=== PATIENT | female | born 1990 | race Caucasian/White ===

== ENCOUNTER → 2021-02-21 12:14 | Outpatient (CLI) | payer OTHER, SELFPAY ==
[2021-02-21 20:00] LABS: Alanine Aminotransferase 23 IU/L (<35); Albumin 4.4 g/dL (3.5-5.0); Albumin Globulin Ratio 1.5 (1.0-2.8); Alkaline Phosphatase 66 U/L (38-126); Aspartate Aminotransferase 26 IU/L (14-36); BUN Creatinine Ratio 14.8 (6-22); Bilirubin Total 0.2 mg/dL (0.2-1.3); Blood Urea Nitrogen 8 mg/dL (7-17); Calcium 9.6 mg/dL (8.4-10.2); Carbon Dioxide 26 mmol/L (22-32); Chloride 103 mmol/L (98-107); Estimated Glomerular Filt Rate > 60.0 mL/min (>60); Globulin 2.9 g/dL (1.7-4.1); Glucose 83 mg/dL (70-100); HEMOLYSIS < 15 (0-50); Potassium 4.1 mmol/L (3.4-5.1); Sodium 140 mmol/L (137-145); Total Protein 7.3 g/dL (6.3-8.2)
[2021-02-21 20:18] LABS: Add Manual Diff / Slide Review NO; Basophils Absolute Auto 0 /uL (0-100); Basophils Percent Auto 0.9 % (0-2); Eosinophils Absolute Auto 100 /uL (0-450); Eosinophils Percent Auto 2.1 % (2-4); Free T3, Triiodothyronine Free 3.42 pg/mL (2.77-5.27); Free T4, Direct Thyroxine 1.06 ng/dL (0.78-2.19); Hematocrit 38.3 % (36-46); Hemoglobin 13.1 g/dL (12.0-16.0); Lymphocytes Absolute Auto 1300 /uL (1100-4500); Lymphocytes Percent Auto 27.9 % (25-40); Mean Corpuscular HGB Conc 34.2 % (30-36); Mean Corpuscular Hemoglobin 32.4 PG (26-34); Mean Corpuscular Volume 94.7 fL (80-100); Monocytes Absolute Auto 200 /uL (0-900); Monocytes Percent Auto 4.9 % (3-14); Neutrophils Absolute Auto 2900 /uL (1500-7000); Neutrophils Percent Auto 64.2 % (50-75); Platelet Count 260 X10^3/uL (150-400); Red Blood Cell Count 4.05 X10^6/uL (4.0-5.2); Red Cell Distribution Width 12.7 % (11.6-14.8); White Blood Cell Count 4.6 X10^3/uL (4.5-11.0)
[2021-02-21 20:21] LABS: Progesterone, Total 2.01 ng/mL
[2021-02-21 20:31] LABS: Thyroid Stimulating Hormone 0.099 uIU/mL (0.47-4.68)
[2021-02-21 20:36] LABS: Estradiol, Total 78.9 pg/mL
[2021-02-26 14:45] LABS: Percent Free Testosterone 1.93 % (0.50-2.80); Testosterone Free 0.63 ng/dL (0.10-0.85); Testosterone Total 32.4 ng/dL (10.0-55.0)
== END ==
PROVIDERS: Family Provider Family Medicine; PCP Family Medicine
DX: E06.3 Autoimmune thyroiditis (principal)
CPT/HCPCS: 80053; 82627; 82670; 84144; 84402; 84403; 84439; 84443; 84481; 85025

== ENCOUNTER → 2021-06-27 08:34 | Outpatient (CLI) | payer OTHER, SELFPAY ==
[2021-06-27 21:28] LABS: COVID19 - ORCAS (NP or Nasal) Negative (Negative)
== END ==
PROVIDERS: Family Provider Family Medicine; PCP Family Medicine; Visit Provider Family Medicine
DX: Z20.822 Contact with and (suspected) exposure to COVID-19 (principal)
CPT/HCPCS: U0003

== ENCOUNTER → 2021-09-26 11:36 | Outpatient (CLI) | payer OTHER, SELFPAY ==
[2021-09-26 19:15] LABS: Add Manual Diff / Slide Review NO; Basophils Absolute Auto 0 /uL (0-100); Basophils Percent Auto 0.6 % (0-2); Eosinophils Absolute Auto 0 /uL (0-450); Eosinophils Percent Auto 0.8 % (2-4); Hematocrit 34.7 % (36-46); Lymphocytes Absolute Auto 1400 /uL (1100-4500); Lymphocytes Percent Auto 34.1 % (25-40); Mean Corpuscular HGB Conc 34.7 % (30-36); Mean Corpuscular Hemoglobin 33.2 PG (26-34); Mean Corpuscular Volume 95.6 fL (80-100); Monocytes Absolute Auto 200 /uL (0-900); Monocytes Percent Auto 5.1 % (3-14); Neutrophils Absolute Auto 2500 /uL (1500-7000); Neutrophils Percent Auto 59.4 % (50-75); Platelet Count 255 X10^3/uL (150-400); Red Blood Cell Count 3.62 X10^6/uL (4.0-5.2); Red Cell Distribution Width 12.9 % (11.6-14.8); White Blood Cell Count 4.2 X10^3/uL (4.5-11.0)
[2021-09-26 19:21] LABS: Alanine Aminotransferase 15 IU/L (<35); Albumin 4.6 g/dL (3.5-5.0); Albumin Globulin Ratio 1.6 (1.0-2.8); Alkaline Phosphatase 51 U/L (38-126); Aspartate Aminotransferase 27 IU/L (14-36); BUN Creatinine Ratio 16.9 (6-22); Bilirubin Total 0.6 mg/dL (0.2-1.3); Blood Urea Nitrogen 14 mg/dL (7-17); Calcium 9.8 mg/dL (8.4-10.2); Carbon Dioxide 27 mmol/L (22-32); Chloride 104 mmol/L (98-107); Estimated Glomerular Filt Rate > 60.0 mL/min (>60); Globulin 2.9 g/dL (1.7-4.1); Glucose 99 mg/dL (70-100); HEMOLYSIS < 15 (0-50); Sodium 138 mmol/L (137-145); Total Protein 7.5 g/dL (6.3-8.2)
[2021-09-26 20:04] LABS: Progesterone, Total 9.38 ng/mL
[2021-09-26 20:16] LABS: Free T3, Triiodothyronine Free 2.51 pg/mL (2.77-5.27); Free T4, Direct Thyroxine 0.28 ng/dL (0.78-2.19)
[2021-09-26 20:20] LABS: Estradiol, Total 55.5 pg/mL
[2021-09-26 20:29] LABS: Thyroid Stimulating Hormone 76.6 uIU/mL (0.47-4.68)
[2021-10-05 09:36] LABS: Percent Free Testosterone 2.23 % (0.50-2.80); Testosterone Free 0.48 ng/dL (0.10-0.85); Testosterone Total 21.5 ng/dL (10.0-55.0)
== END ==
PROVIDERS: Family Provider Family Medicine; PCP Family Medicine
DX: E06.3 Autoimmune thyroiditis (principal); N92.0 Excessive and frequent menstruation with regular cycle; N94.3 Premenstrual tension syndrome; Z13.29 Encounter for screening for other suspected endocrine disorder
CPT/HCPCS: 80053; 82627; 82670; 84144; 84402; 84403; 84439; 84443; 84481; 85025

== ENCOUNTER → 2021-11-18 12:33 | Outpatient (CLI) | payer MEDICAID, SELFPAY ==
[2021-11-18 18:55] LABS: Add Manual Diff / Slide Review NO; Basophils Absolute Auto 100 /uL (0-100); Basophils Percent Auto 1.1 % (0-2); Eosinophils Absolute Auto 100 /uL (0-450); Eosinophils Percent Auto 1.2 % (2-4); Hematocrit 35.2 % (36-46); Lymphocytes Absolute Auto 1400 /uL (1100-4500); Lymphocytes Percent Auto 31.2 % (25-40); Mean Corpuscular HGB Conc 34.1 % (30-36); Mean Corpuscular Hemoglobin 32.6 PG (26-34); Mean Corpuscular Volume 95.9 fL (80-100); Monocytes Absolute Auto 200 /uL (0-900); Monocytes Percent Auto 5.5 % (3-14); Neutrophils Absolute Auto 2800 /uL (1500-7000); Platelet Count 243 X10^3/uL (150-400); Red Blood Cell Count 3.68 X10^6/uL (4.0-5.2); Red Cell Distribution Width 12.8 % (11.6-14.8); White Blood Cell Count 4.5 X10^3/uL (4.5-11.0)
[2021-11-18 19:10] LABS: HEMOLYSIS < 15 (0-50); Iron 127 ug/dL (37-170)
[2021-11-18 19:24] LABS: Percent Iron Saturation 40 % (15-50); Total Iron Binding Capacity 317 ug/dL (265-497); Transferrin 242 mg/dL (206-381)
[2021-11-18 19:29] LABS: Free T4, Direct Thyroxine 0.66 ng/dL (0.78-2.19)
[2021-11-18 19:42] LABS: Thyroid Stimulating Hormone 15.4 uIU/mL (0.47-4.68)
[2021-11-18 19:45] LABS: Ferritin 22 ng/mL (6-137)
== END ==
PROVIDERS: Family Provider Family Medicine; PCP Family Medicine; Visit Provider General Practice
DX: D50.9 Iron deficiency anemia, unspecified (principal); E06.3 Autoimmune thyroiditis
CPT/HCPCS: 82728; 83540; 83550; 84439; 84443; 84481; 85025

== ENCOUNTER → 2022-05-30 13:24 | Outpatient (CLI) | payer OTHER, MEDICAID, SELFPAY ==
[2022-05-30 20:33] LABS: Free T3, Triiodothyronine Free 2.39 pg/mL (2.77-5.27); Free T4, Direct Thyroxine 0.79 ng/dL (0.78-2.19)
[2022-05-30 20:47] LABS: Thyroid Stimulating Hormone 11.3 uIU/mL (0.47-4.68)
== END ==
PROVIDERS: Family Provider Family Medicine; PCP Family Medicine; Visit Provider General Practice
DX: E06.3 Autoimmune thyroiditis (principal)
CPT/HCPCS: 84439; 84443; 84481

== ENCOUNTER → 2022-09-14 11:28 | Outpatient (CLI) | payer OTHER, MEDICAID, SELFPAY ==
[2022-09-14 18:38] LABS: HEMOLYSIS < 15 (0-50); Iron 158 ug/dL (37-170)
[2022-09-14 18:50] LABS: Hematocrit 36.9 % (36-46); Hemoglobin 12.8 g/dL (12.0-16.0); Mean Corpuscular HGB Conc 34.8 % (30-36); Mean Corpuscular Hemoglobin 33.1 PG (26-34); Mean Corpuscular Volume 95.2 fL (80-100); Percent Iron Saturation 46 % (15-50); Platelet Count 361 X10^3/uL (150-400); Red Blood Cell Count 3.88 X10^6/uL (4.0-5.2); Red Cell Distribution Width 12.7 % (11.6-14.8); Total Iron Binding Capacity 345 ug/dL (265-497); Transferrin 269 mg/dL (206-381); White Blood Cell Count 5.9 X10^3/uL (4.5-11.0)
[2022-09-14 18:58] LABS: Free T3, Triiodothyronine Free 3.01 pg/mL (2.77-5.27); Free T4, Direct Thyroxine 0.97 ng/dL (0.78-2.19)
[2022-09-14 19:10] LABS: Thyroid Stimulating Hormone 3.06 uIU/mL (0.47-4.68)
[2022-09-14 19:23] LABS: Add Manual Diff / Slide Review YES
[2022-09-14 20:05] LABS: Neutrophils Absolute Manual 4012 /uL (3000-5900); RBC Morphology Normal Morphology; Total Cells Counted 100
== END ==
PROVIDERS: Family Provider Family Medicine; PCP Physician Assistant Medical; Visit Provider General Practice
DX: E06.3 Autoimmune thyroiditis (principal); N92.0 Excessive and frequent menstruation with regular cycle
CPT/HCPCS: 83540; 83550; 84439; 84443; 84481; 85007; 85025

== ENCOUNTER → 2024-07-28 14:08 | Outpatient (CLI) | payer BC, SELFPAY ==
--- NOTE | 2024-07-28 14:18 | DI.RAD.S_ITS ---
PROCEDURE: XR HAND RT MIN 3V INDICATIONS: Pain in right and TECHNIQUE: 3 views of the right hand acquired. COMPARISON: None. FINDINGS / IMPRESSION: Nondisplaced suspected acute transverse fracture of the right 5th metacarpal at its proximal metaphysis. Follow-up suggested. No radiographic evidence of dislocation or high attenuation soft tissue foreign body. Dictated by: Brandon Burnett M.D. on 07/29/2024 at 9:04 Approved by: Brandon Burnett M.D. on 07/29/2024 at 9:07
== END ==
PROVIDERS: Family Provider Family Medicine; PCP Family Medicine; Referring Provider Family Medicine; Visit Provider Family Medicine
DX: M79.641 Pain in right hand (principal)
CPT/HCPCS: 73130